=== PATIENT | female | born 1990 | race Caucasian/White ===

== ENCOUNTER 2023-08-29 14:38 | Emergency (ER) | payer BC ==
--- OUTSIDE RECORDS SUMMARY | 2023-08-29 14:41 | XMS REPORT | Continuity of Care Document ---
:1990 Author Organization [facility] t Address [address] [facility] [address] [place] [address] Care Team Providers Name Role Phone Unavailable Unavailable Unavailable Problems This patient has no known problems. Allergies, Adverse Reactions, Alerts This patient has no known allergies or adverse reactions. Medications This patient has no known medications. Procedures This patient has no known procedures. Encounters Start End Encounter Admission Attending Care Care Encounter Source Date/Time Date/Time Type Type Clinicians Facility Department ID 2023-05-15 2023-05-15 Outpatient SFA SFA [id number] [facility]eb 10:52:04 10:52:04 [id number] F Merrick 2023-04-16 2023-04-16 Outpatient SFA SFA [facility]eb 11:01:47 11:01:47 [id number] F Merrick 2023-03-25 2023-03-25 Outpatient SFA SFA [id number] Zeb 09:11:57 09:11:57 [id number] F Merrick 2023-03-18 2023-03-18 Outpatient SFA SFA [id number] [facility]eb 09:05:53 09:05:53 [id number] F Merrick 2023-03-11 2023-03-11 Outpatient SFA SFA [id number] Zeb 13:06:45 13:06:45 [id number] Merrick Results This patient has no known results.
[2023-08-29 15:41] LABS: Absolute Lymphocytes (CBC) 1.3 K/uL (0.7-4.9); Hematocrit 35.1 % (36.0-45.0); Lymphocytes % 17.8 % (15.3-44.8); MCV 86.3 fL (80-100); MPV 6.9 fL (7.6-11.3); Platelets 431 thou/uL (152-406); RBC Red Blood Cell Count 4.07 M/uL (3.86-4.86)
[2023-08-29 15:46] LABS: Specific Gravity 1.026 (1.005-1.030)
[2023-08-29 15:50] LABS: Specific Gravity 1.026 (1.005-1.030); Urine Bacteria None Seen /HPF (<20); Urine Bilirubin NEGATIVE (Negative); Urine Blood 3+ (Negative); Urine Clarity Turbid (Clear); Urine Color Light-Yellow (Yellow); Urine Glucose NEGATIVE (Negative); Urine Mucus Slight /HPF (None Seen); Urine Protein NEGATIVE (Negative); Urine Urobilinogen Normal (Normal); Urine pH 6.5 (5.0-7.0)
[2023-08-29] MEDS ORDERED: ONDANSETRON 4 MG/2 ML VIAL ONE (15:50)
[2023-08-29] MEDS ORDERED: MORPHINE 4 MG/ML SYR ONE (15:50)
[2023-08-29 15:58] LABS: Albumin 3.5 g/dL (3.4-5.0); Bilirubin Total 0.2 mg/dL (0.2-1.0); Potassium 3.4 mEq/L (3.5-5.1); Protein, Total 7.9 g/dL (6.4-8.2)
--- NOTE | 2023-08-29 16:28 | RAD REPORT ---
EXAM DESCRIPTION: CT - Stone Protocol - 08/29/2023 4:04 pm CLINICAL HISTORY: Abdominal pain. Left flank pain COMPARISON: None. TECHNIQUE: Computed axial tomography of the abdomen pelvis was obtained without oral or IV contrast. Lack of IV and oral contrast limits evaluation of solid organs, appendix, bowel, and vessels. Vang l reformatted images were obtained and reviewed. All CT scans are performed using dose optimization technique as appropriate and may include automated exposure control or mA/KV adjustment according to patient size. FINDINGS: A renal calculus is not seen. An ureteral calculus is not noted. A bladder calculus is not present. No hydronephrosis. Tiny bilateral renal calculi The liver, spleen, pancreas and adrenals appear grossly normal There is no evidence of diverticulitis. The appendix appears normal No adnexal mass Small umbilical hernia IMPRESSION: Tiny nonobstructing bilateral renal calculi
--- NOTE | 2023-08-29 16:49 | ER ---
Nurse's Notes [facility] Name: Lashaun Wakefield Age: 33 yrs Sex: Female : 1990 Arrival Date: 08/29/2023 Time: 14:38 Bed 3 Private MD: Diagnosis: Calculus of kidney;Low back pain Presentation: 08/29 14:45 Chief complaint: Abdominal pain x 3 days, sudden onset left low back pain today. Denies hb injury/N/V/D. HR 120s-140s in triage. Coronavirus screen: At this time, the client does not indicate any symptoms associated with coronavirus-19. Ebola Screen: No symptoms or risks identified at this time. Initial Sepsis Screen: Does the patient meet any 2 criteria? No. Patient's initial sepsis screen is negative. Does the patient have a suspected source of infection? No. Patient's initial sepsis screen is negative. Risk Assessment: Do you want to hurt yourself or someone else? Patient reports no desire to harm self or others. Onset of symptoms was August 27, 2023. 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 - Social history:: Smoking status: Reported history of juuling and/or vaping. - Family history:: not pertinent. - Hospitalizations: : No recent hospitalization is reported. Screenin:30 [facility] ED Fall Risk Assessment (Adult) History of falling in the last 3 months, ko1 including since admission No falls in past 3 months (0 pts) Confusion or Disorientation No (0 pts) Intoxicated or Sedated No (0 pts) Impaired Gait No (0 pts) Mobility Assist Device Used No (0 pt) Altered Elimination No (0 pt) Score/Fall Risk Level 0 - 2 = Low Risk Oriented to surroundings, Maintained a safe environment, Educated pt \T\ family on fall prevention, incl call for assistance when getting out of bed, Assessed \T\ reinforced patient's understanding of fall precautions, Provided non-skid footwear, Hourly rounding (assess needs \T\ fall precautionary measures) done, Used ambulatory aids as needed (educated on \T\ assisted with), Used gait belt as appropriate. Abuse screen: Denies threats or abuse. Denies injuries from another. Nutritional screening: No deficits noted. Tuberculosis screening: No symptoms or risk factors identified. Assessment: 15:30 General: Appears distressed, uncomfortable, Behavior is calm, cooperative, appropriate ko1 for age. Pain: Complains of pain in abdomen. Neuro: Level of Consciousness is awake, alert, obeys commands, Oriented to person, place, time, situation, Appropriate for age. Cardiovascular: No deficits noted. Respiratory: No deficits noted. GI: Reports lower abdominal pain. : No deficits noted. EENT: No deficits noted. Derm: No deficits noted. Musculoskeletal: No deficits noted. Vital Signs: 14:45 BP 141 / 115; Pulse 132; Resp 18; Temp 98.7(TE); Pulse Ox 99% on R/A; Weight 97.52 kg; hb Height 5 ft. 6 in. ; Pain 7/10; 15:51 BP 124 / 88; Pulse 93; Resp 14; Pulse Ox 98% ; ko1 16:43 BP 138 / 93; Pulse 94; Resp 16; Pulse Ox 100% ; ko1 16:52 BP 129 / 89; Pulse 95; Resp 14; Pulse Ox 98% ; ko1 14:45 Body Mass Index 34.70 (97.52 kg, 167.64 cm) hb 14:45 Pain Scale: Adult hb ED Course: 14:40 Patient arrived in ED. rg4 14:40 Michael Hendricks MD is Attending Physician. rn 14:49 Triage completed. hb 14:49 Arm band placed on. hb 14:54 Emilia Ceja, TAMELA is Primary Nurse. ko1 15:20 Inserted saline lock: 22 gauge in right antecubital area, using aseptic technique. ko1 Blood collected. 15:30 Patient has correct armband on for positive identification. Placed in gown. Bed in low ko1 position. Call light in reach. Side rails up X2. Provided Education on: na. Client placed on continuous cardiac and pulse oximetry monitoring. NIBP monitoring applied. air sampling and monitoring on. Pulse ox on. Door closed. Noise minimized. Lights dimmed. Warm blanket given. 15:31 Lactate w/ 2H reflex if indic. Sent. ko1 15:31 Blood Culture Adult (2) Sent. ko1 15:31 CBC with Diff Sent. ko1 15:31 CMP Sent. ko1 15:31 Lipase Sent. ko1 15:31 Urinalysis w/ reflexes Sent. ko1 15:31 Test, Urine Sent. ko1 16:06 CT Stone Protocol In Process Unspecified. EDMS 16:52 No provider procedures requiring assistance completed. IV discontinued, intact, ko1 bleeding controlled, No redness/swelling at site. Pressure dressing applied. Administered Medications: 15:38 Drug: Ondansetron IVP 4 mg IVP once; over 2 minutes Route: IVP; Site: right antecubital;ko1 15:43 Drug: morphine IVP or IV 4 mg IVP once over 4 mins Route: IVP; Infused Over: 4 mins; ko1 Site: right antecubital; Medication: 15:30 VIS not applicable for this client. ko1 Outcome: 16:49 Discharge ordered by . rn 16:52 Discharged to home ambulatory, ko1 16:52 Condition: improved 16:52 Discharge instructions given to patient, Instructed on discharge instructions, follow up and referral plans. Demonstrated understanding of instructions, follow-up care, 16:59 Patient left the ED. ko1 Signatures: Dispatcher [employer] EDMT Michael Hendricks MD MD rn Baxter, Heather, RN RN hb Garcia, Rubi rg4 Emilia Ceja RN RN ko1 Corrections: (The following items were deleted from the chart) 15:01 14:45 Chief complaint: Abdominal pain x 3 days, sudden onset left low back pain today. hb Denies injury/N/V/D. hb
--- NOTE | 2023-08-29 16:49 | EDPHYS ---
Physician Documentation [facility] Name: Lashaun Wakefield Age: 33 yrs Sex: Female : 1990 Arrival Date: 08/29/2023 Time: 14:38 Bed 3 Private MD: ED Physician Michael Hendricks HPI: 08/29 14:56 This 33 yrs old Female presents to ER via Ambulatory with complaints of Back Pain. rn 14:56 The patient presents with pain that is acute. The symptoms are located in the low back. rn Onset: The symptoms/episode began/occurred today. The pain radiates to the abdomen. Associated signs and symptoms: Pertinent positives: abdominal pain, Pertinent negatives: chest pain, dysuria, fever. Modifying factors: The patient symptoms are alleviated by nothing, the patient symptoms are aggravated by any movement. Severity of symptoms: At their worst the symptoms were moderate, in the emergency department the symptoms are unchanged. The patient has not experienced similar symptoms in the past. Patient reports left lower back pain that began this morning. Has been having left lower quadrant abdominal pain for the last few days was attributing the pain to her menstrual cramps. Reports this period is heavier than normal but regular and schedule. No fever. No trauma. No heavy lifting today. Reports pain in the left lower back that is worse with any movement, especially standing straight up.. 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 - Social history:: Smoking status: Reported history of juuling and/or vaping. - Family history:: not pertinent. - Hospitalizations: : No recent hospitalization is reported. ROS: 14:56 Constitutional: Negative for fever, chills, and weight loss, Cardiovascular: Negative rn for chest pain, palpitations, and edema, Respiratory: Negative for shortness of breath, cough, wheezing, and pleuritic chest pain, Abdomen/GI: Positive for left lower quadrant abdominal pain Back: Positive for left lower back pain : Negative for injury, bleeding, discharge, and swelling, MS/Extremity: Negative for injury and deformity, Skin: Negative for injury, rash, and discoloration, Neuro: Negative for headache, weakness, numbness, tingling, and seizure, Exam: 14:56 Constitutional: This is a well developed, well nourished patient who is awake, alert, rn and in no acute distress. Head/Face: Normocephalic, atraumatic. Eyes: Pupils equal round and reactive to light, extra-ocular motions intact. Cardiovascular: Tachycardic, regular. No pulse deficits. Respiratory: No increased work of breathing, no retractions or nasal flaring. Abdomen/GI: soft, + LLQ tenderness, no rebound Back: No spinal tenderness. Skin: Warm, dry MS/ Extremity: Pulses equal, no cyanosis. Neuro: Awake and alert, GCS 15 Vital Signs: 14:45 BP 141 / 115; Pulse 132; Resp 18; Temp 98.7(TE); Pulse Ox 99% on R/A; Weight 97.52 kg; hb Height 5 ft. 6 in. ; Pain 7/10; 15:51 BP 124 / 88; Pulse 93; Resp 14; Pulse Ox 98% ; ko1 16:43 BP 138 / 93; Pulse 94; Resp 16; Pulse Ox 100% ; ko1 16:52 BP 129 / 89; Pulse 95; Resp 14; Pulse Ox 98% ; ko1 14:45 Body Mass Index 34.70 (97.52 kg, 167.64 cm) hb 14:45 Pain Scale: Adult hb MDM: 14:40 Patient medically screened. rn 16:46 Differential diagnosis: arthritis, Hydronephrosis Peptic Ulcer Pyelonephritis ruptured rn disc, sprain, Ureterolithiasis. Data reviewed: vital signs, nurses notes, lab test result(s), radiologic studies, CT scan, and as a result, I will discharge patient. Counseling: I had a detailed discussion with the patient and/or guardian regarding the historical points, exam findings, and any diagnostic results supporting the discharge/admit diagnosis, lab results, radiology results, the need for outpatient follow up, to return to the emergency department if symptoms worsen or persist or if there are any questions or concerns that arise at home. Response to treatment: the patient's symptoms have markedly improved after treatment, and as a result, I will discharge patient. Special discussion: Based on the patient's Hx, exam, and Dx evaluation, there is no indication for emergent surgery or inpatient Tx. It is understood by the patient/guardian that if the Sx's persist or worsen they need to return immediately for re-evaluation. I discussed with the patient/guardian in detail that at this point there is no indication for admission to the hospital. It is understood, however, that if the symptoms persist or worsen the patient needs to return immediately for re-evaluation. ED course: Patient improved markedly since arrival. CT does not show anything acute but does show bilateral small kidney stones. Possibly passed a kidney stone recently. Could also be a secondary back problem given pain with movement and tenderness to the left flank. Recommend NSAIDs and [id number] medication along with stretching and heat.. ED course: I have personally reviewed all of the results, including but not limited to blood tests and imaging deemed necessary to safely discharge this patient at this time. All results given to and printed out for patient. I personally went over all the results with the patient and answered all questions. Patient will follow-up with PCP and or specialist as discussed. Return precautions given and understood.. 08/29 14:49 Order name: CBC with Diff; Complete Time: 15:48 rn 08/29 14:49 Order name: CMP; Complete Time: 15:58 rn 08/29 14:49 Order name: Lipase; Complete Time: 15:58 rn 08/29 14:49 Order name: Test, Urine; Complete Time: 15:48 rn 08/29 14:49 Order name: Urinalysis w/ reflexes; Complete Time: 15:58 rn 08/29 14:54 Order name: Blood Culture Adult (2) rn 08/29 14:54 Order name: Lactate w/ 2H reflex if indic.; Complete Time: 15:58 rn 08/29 14:49 Order name: CT Stone Protocol; Complete Time: 16:37 rn 08/29 14:49 Order name: IV Saline Lock; Complete Time: 15:31 rn 08/29 14:49 Order name: Labs collected and sent; Complete Time: 15:31 rn Administered Medications: 15:38 Drug: Ondansetron IVP 4 mg IVP once; over 2 minutes Route: IVP; Site: right antecubital;ko1 15:43 Drug: morphine IVP or IV 4 mg IVP once over 4 mins Route: IVP; Infused Over: 4 mins; ko1 Site: right antecubital; Disposition Summary: 08/29/23 16:49 Discharge Ordered Notes: Location: Home rn Problem: new rn Symptoms: have improved rn Condition: Stable rn Diagnosis - Calculus of kidney rn - Low back pain rn Followup: rn - With: Private Physician - When: As needed - Reason: Recheck today's complaints, Re-evaluation by your physician Discharge Instructions: - Discharge Summary Sheet rn - Acute Back Pain, Adult rn - Kidney Stones rn - Musculoskeletal Pain rn Forms: - Medication Reconciliation Form rn - Thank You Letter rn - Antibiotic internet marketing manager - Prescription Opioid Use rn - Patient Portal Instructions rn - Leadership Thank You Letter rn Signatures: Dispatcher [employer] Michael Patton MD MD rn Baxter, Heather, RN RN hb Oliver, Kathy, RN RN ko1
[2023-08-29 18:12] VITALS: TEMP 98.7
[2023-08-29 18:26] VITALS: BP 138/93; O2SAT 100
== END 2023-08-29 16:59 | disposition home or self-care (01) ==
LOC: ER 14:38
DX: N20.0 Calculus of kidney (principal)
CPT/HCPCS: 87040 ×2; 85025; 81001; 36415; 81025; 83605; 83690; 80053; 76377; 74176; 96375; 96374; 99285; J2405